=== PATIENT | female | born 1955 | race Caucasian/White ===

== ENCOUNTER 2021-03-14 15:10 | Inpatient (IN) | payer OTHER ==
[~2021-03-14] VITALS: Ht 152.4 cm; Wt 117.4 kg
[~2021-03-14 15:10] MED LIST: ASCO500 PO; ATEN50 PO; ATOR40TA PO; BENZ100A PO; DIPH50; GABA300 PO; GUAI600T33 PO; GUAIFEN-CODEINE10 ML PO; HYDCHL25 PO; LAMOTRIGINE PO; LEVSOD100 PO; LISI10 PO; LISI5 PO; LORA1 PO; METO50 PO; MULVITMIND PO; Mysoline250 MG PO; PARO20 PO; PARO30 PO; PRAV40 PO; Prednisone20 MG PO; Vibramycin100 MG PO; [UNRECOGNIZED DRUG - REMARK]
[2021-03-14 16:40] LABS: BASOPHILS ABSOLUTE AUTO 0.05 K/mm3 (0.00-0.23); BASOPHILS PERCENT AUTO 0 % (0-2); EOSINOPHILS ABSOLUTE AUTO 0.08 K/mm3 (0.00-0.68); EOSINOPHILS PERCENT AUTO 1 % (0-6); Hemoglobin 12.7 g/dL (11.5-16.0); IMMATURE GRAN ABSOLUTE AUTO 0.08 K/mm3 (0.00-0.10); IMMATURE GRAN PERCENT AUTO 1 % (0-1); LYMPHOCYTES ABSOLUTE AUTO 1.41 K/mm3 (0.84-5.20); LYMPHOCYTES PERCENT AUTO 11 % (21-46); MONOCYTES ABSOLUTE AUTO 0.89 K/mm3 (0.16-1.47); MONOCYTES PERCENT AUTO 7 % (4-13); Mean Corpuscular HGB 30.3 pg (26.0-34.0); Mean Corpuscular HGB Conc 34.3 g/dL (31.5-36.5); Mean Corpuscular Volume 88 fL (80-100); Mean Platelet Volume 11.9 fL (9.1-12.4); NEUTROPHILS PERCENT AUTO 80 % (41-73); Platelet Count 323 K/mm3 (150-400); RDW Coefficient Variation 14.1 % (11.7-14.2); RDW Standard Deviation 45.7 fL (35.1-46.3); Red Blood Cell Count 4.19 M/mm3 (3.80-5.20); White Blood Cell Count 12.71 K/mm3 (4.00-11.30)
[2021-03-14 17:13] LABS: Albumin, Blood 2.8 g/dL (3.4-5.0); Albumin/Globulin Ratio 0.5 (0.8-1.8); Bilirubin, Total 0.4 mg/dL (0.1-1.0); Calcium, Blood 8.5 mg/dL (8.5-10.1); Creatinine, Blood 6.3 mg/dL (0.40-1.00); Free Thyroxine 1.05 ng/dL (0.70-1.60); Globulin, Blood 5.8 g/dL (2.2-4.0); Magnesium, Blood 2.1 mg/dL (1.6-2.4); Potassium, Blood 2.8 mmol/L (3.5-5.5); Thyroid Stimulating Hormone 3.58 uIU/mL (0.360-4.800); Total Protein, Blood 8.6 g/dL (6.4-8.2)
[2021-03-14 17:36] LABS: Source, Urine Catheter
[2021-03-14 17:38] LABS: Appearance, Urine Hazy (Clear); Blood, Urine 4+ (Neg); Color, Urine Yellow (P-Yellow); Glucose Qualitative, Urine Neg (Neg); Ketones, Urine 1+ (Neg); Leukocyte Esterase, Urine 1+ (Neg); Nitrite, Urine Neg (Neg); Protein, Urine 3+ (Neg); Specific Gravity, Urine 1.025 (1.003-1.022); Urobilinogen, Urine NORM (Normal)
[2021-03-14 17:44] LABS: Bilirubin, Urine 1+ (Neg)
[2021-03-14 17:45] LABS: Amorphous Mod (0-Heavy); Bacteria Many /hpf
[2021-03-14 17:46] LABS: Squamous Epithelial Cells Mod /hpf (Few)
[2021-03-14 17:49] LABS: Granular Casts 0-2 /lpf (0); Hyaline Casts 0-2 /lpf (0-2); White Blood Cells, Urine 0-2 /hpf (0-5)
[2021-03-14] MEDS ORDERED: GABAPENTIN600 MG PO (18:15)
[2021-03-14] MEDS ORDERED: SYNTHROID150 MC1 PO (18:16)
[2021-03-14] MEDS ORDERED: METO100ER PO (18:16)
[2021-03-14] MEDS ORDERED: IRBESARTAN300 M3 PO (18:16)
[2021-03-14] MEDS ORDERED: LIOT5 PO (18:16)
[2021-03-14] MEDS ORDERED: PARO30 PO (18:16)
[2021-03-14] MEDS ORDERED: HYDROXYZINE PAM25 MG PO (18:17)
[2021-03-14] MEDS ORDERED: PRIMIDONE PO (18:17)
[2021-03-14] MEDS ORDERED: Ativan1 MG PO (18:18)
[2021-03-14] MEDS ORDERED: ATOR40TA PO (18:18)
[2021-03-14] MEDS ORDERED: HYDCHL25 PO (18:18)
[2021-03-14] MEDS ORDERED: ADALAT CC PO (18:18)
[2021-03-14 19:01] LABS: Creatine Kinase MB 5.6 ng/mL (0.0-3.6); Creatine Kinase MB Index 0.9 (0.0-4.0)
[2021-03-14 21:38] LABS: Thyroid Stimulating Hormone 2.85 uIU/mL (0.360-4.800)
[2021-03-14 21:55] LABS: Albumin, Blood 2.6 g/dL (3.4-5.0); Anion Gap 16 mmol/L (6-16); Blood Urea Nitrogen 60 mg/dL (8-24); Bun/Creatinine Ratio 10.1 (12.0-20.0); CO2, Blood 19 mmol/L (21-32); Calcium, Blood 8.2 mg/dL (8.5-10.1); Chloride, Blood 84 mmol/L (98-108); Creatinine, Blood 5.97 mg/dL (0.40-1.00); Glomerular Filtration Rate 7 (60-); Glucose, Blood 122 mg/dL (70-99); Phosphorus, Blood 5.9 mg/dL (2.5-4.9); Potassium, Blood 3.6 mmol/L (3.5-5.5); Sodium, Blood 119 mmol/L (136-145)
[2021-03-15 05:12] LABS: BASOPHILS ABSOLUTE AUTO 0.04 K/mm3 (0.00-0.23); BASOPHILS PERCENT AUTO 0 % (0-2); EOSINOPHILS ABSOLUTE AUTO 0.07 K/mm3 (0.00-0.68); EOSINOPHILS PERCENT AUTO 1 % (0-6); Hematocrit 35.4 % (33.0-51.0); Hemoglobin 11.9 g/dL (11.5-16.0); IMMATURE GRAN ABSOLUTE AUTO 0.11 K/mm3 (0.00-0.10); IMMATURE GRAN PERCENT AUTO 1 % (0-1); LYMPHOCYTES ABSOLUTE AUTO 1.59 K/mm3 (0.84-5.20); LYMPHOCYTES PERCENT AUTO 13 % (21-46); MONOCYTES PERCENT AUTO 7 % (4-13); Mean Corpuscular HGB 30.1 pg (26.0-34.0); Mean Corpuscular HGB Conc 33.6 g/dL (31.5-36.5); Mean Corpuscular Volume 89 fL (80-100); Mean Platelet Volume 11.6 fL (9.1-12.4); NEUTROPHILS ABSOLUTE AUTO 9.75 K/mm3 (1.96-9.15); NEUTROPHILS PERCENT AUTO 78 % (41-73); Platelet Count 291 K/mm3 (150-400); RDW Coefficient Variation 14.1 % (11.7-14.2); RDW Standard Deviation 45.9 fL (35.1-46.3); Red Blood Cell Count 3.96 M/mm3 (3.80-5.20); White Blood Cell Count 12.46 K/mm3 (4.00-11.30)
[2021-03-15 05:36] LABS: Alanine Aminotransfer (ALT/SGP 149 U/L (12-78); Albumin, Blood 2.4 g/dL (3.4-5.0); Albumin/Globulin Ratio 0.5 (0.8-1.8); Alk Phos 136 U/L (50-136); Anion Gap 14 mmol/L (6-16); Aspartate Aminotrans (AST/SGOT 134 U/L (12-37); Bilirubin, Total 0.3 mg/dL (0.1-1.0); Blood Urea Nitrogen 63 mg/dL (8-24); Bun/Creatinine Ratio 10.9 (12.0-20.0); CO2, Blood 21 mmol/L (21-32); Calcium, Blood 8.1 mg/dL (8.5-10.1); Chloride, Blood 88 mmol/L (98-108); Creatinine, Blood 5.77 mg/dL (0.40-1.00); Globulin, Blood 5.1 g/dL (2.2-4.0); Glomerular Filtration Rate 7 (60-); Glucose, Blood 128 mg/dL (70-99); Magnesium, Blood 2.3 mg/dL (1.6-2.4); Phosphorus, Blood 6.3 mg/dL (2.5-4.9); Potassium, Blood 3.2 mmol/L (3.5-5.5); Sodium, Blood 123 mmol/L (136-145); Total Protein, Blood 7.5 g/dL (6.4-8.2)
[2021-03-15 12:39] LABS: SARS-Cov-2 (COVID-19) PCR, MMC NEGATIVE (NEGATIVE)
--- NOTE | 2021-03-15 17:39 | NUR ---
PT ARRIVED IN THE UNIT VIA STRETCHER TRANSFERRED VIA SLIDE SHEET, REPORT RECEIVED FROM CLAU DUARTE AND IS HERE FOR KATHIA. PT IS ALERT AND ORIENTED X3, ABLE TO STATE NAME, , KNOWS WHERE SHE'S AT SOMEWHAT CONFUSED AND FORGETFUL. 1PA FOR TRANSFERS PER REPORT, NS RUNNING AT 50MLS/HR, DR ARIAS IS CONSULTED, PT ALSO HAS UTI. VITALS HRR SINUS 80'S, BP SYSTOLIC 130'S, SATS ABOVE 95% ONRA, AFEBRILE. PT HAS REDNESS ON GROIN, BUTTOCKS AND PANUS, PT DENIES ANY PAIN. PT WAS ALSO BLADDER SCAN 147MLS URINE RETAINED PT NOT FEELING THE URGE TO VOID YET, URINE SAMPLE NEEDED FOR MORE TESTING PER ORDER. NO OTHER ISSUES REPORTED PT HAS BEEN RESTING IN BED ABLE TO MAKE NEEDS KNOWN. WILL REPORT TO ONCOMING SHIFT
[2021-03-16 03:51] LABS: BASOPHILS ABSOLUTE AUTO 0.04 K/mm3 (0.00-0.23); BASOPHILS PERCENT AUTO 0 % (0-2); EOSINOPHILS ABSOLUTE AUTO 0.12 K/mm3 (0.00-0.68); EOSINOPHILS PERCENT AUTO 1 % (0-6); Hematocrit 36.5 % (33.0-51.0); Hemoglobin 12.2 g/dL (11.5-16.0); IMMATURE GRAN PERCENT AUTO 1 % (0-1); LYMPHOCYTES ABSOLUTE AUTO 1.34 K/mm3 (0.84-5.20); LYMPHOCYTES PERCENT AUTO 12 % (21-46); MONOCYTES ABSOLUTE AUTO 0.65 K/mm3 (0.16-1.47); MONOCYTES PERCENT AUTO 6 % (4-13); Mean Corpuscular HGB 30.1 pg (26.0-34.0); Mean Corpuscular HGB Conc 33.4 g/dL (31.5-36.5); Mean Corpuscular Volume 90 fL (80-100); Mean Platelet Volume 11.5 fL (9.1-12.4); NEUTROPHILS ABSOLUTE AUTO 8.57 K/mm3 (1.96-9.15); NEUTROPHILS PERCENT AUTO 79 % (41-73); Platelet Count 272 K/mm3 (150-400); RDW Coefficient Variation 14.6 % (11.7-14.2); RDW Standard Deviation 48.6 fL (35.1-46.3); Red Blood Cell Count 4.05 M/mm3 (3.80-5.20); White Blood Cell Count 10.82 K/mm3 (4.00-11.30)
[2021-03-16 04:10] LABS: Albumin, Blood 2.1 g/dL (3.4-5.0); Anion Gap 14 mmol/L (6-16); Blood Urea Nitrogen 67 mg/dL (8-24); Bun/Creatinine Ratio 14.8 (12.0-20.0); CO2, Blood 20 mmol/L (21-32); Calcium, Blood 7.8 mg/dL (8.5-10.1); Chloride, Blood 93 mmol/L (98-108); Creatinine, Blood 4.54 mg/dL (0.40-1.00); Glomerular Filtration Rate 10 (60-); Glucose, Blood 123 mg/dL (70-99); Phosphorus, Blood 5.3 mg/dL (2.5-4.9); Potassium, Blood 3.5 mmol/L (3.5-5.5); Sodium, Blood 127 mmol/L (136-145)
--- NOTE | 2021-03-16 06:10 | NUR ---
SHIFT SUMMARY ASSUMED CARE OF PT AT 1900. PT IS A/OX4, BUT SLOW TO RESPOND. HEART SOUNDS REGULAR, LUNG SOUNDS ARM DIMINISHED. PT POTASIUM WAS AT 3.2, HOSPITALIST NOTIFIED AND REPLENISHED WITH 40MEQ PO, AM LABS SHOWED POTASSIUM @ 3.5 THIS AM. PT WAS A 1P SBA WITH WALKER TO BATHROOM. PT HAD LOOSE STOOL. PT TRMORS MADE HER GAIT UNSTEADY. PT DID NOT TOLERATE CPAP THIS EVENING, SHE WORE 32L NC DURING THE NIGHT. PT PERIAREA AND PANNUS ARE DISCOLORED, SHE WAS CLEANED AND POWDER APPLIED. CALL LIGHT IN REACH, BED IN LOWEST POSITON.
--- NOTE | 2021-03-16 18:25 | NUR ---
PT SUMMARY PT STATUS CHANGED TO MEDICAL STATUS WITH TELE. NO ISSUES ENCOUNTERED FOR THE SHIFT, PT HAS BEEN AMBULATORY VIA WALKER FOR TRANSFERS SBA, USES BEDSIDE COMMODE AND BATHROOM FOR TOILETING, PT VOIDED MORE THAN 1L FOR THE SHIFT. ADEQUATE FOOD INTAKE. VITALS HAS BEEN STABLE. PRESENT CHRONIC TREMORS. PT ABLE TO MAKE NEEDS KNOWN, WILL MONITOR
[2021-03-17 04:04] LABS: Hematocrit 33.3 % (33.0-51.0); Hemoglobin 11.1 g/dL (11.5-16.0)
[2021-03-17 04:22] LABS: Albumin, Blood 2.1 g/dL (3.4-5.0); Anion Gap 11 mmol/L (6-16); Blood Urea Nitrogen 71 mg/dL (8-24); Bun/Creatinine Ratio 21.7 (12.0-20.0); CO2, Blood 19 mmol/L (21-32); Calcium, Blood 8.6 mg/dL (8.5-10.1); Chloride, Blood 102 mmol/L (98-108); Creatinine, Blood 3.27 mg/dL (0.40-1.00); Glomerular Filtration Rate 14 (60-); Glucose, Blood 108 mg/dL (70-99); Magnesium, Blood 1.9 mg/dL (1.6-2.4); Phosphorus, Blood 4.5 mg/dL (2.5-4.9); Potassium, Blood 3.5 mmol/L (3.5-5.5); Sodium, Blood 132 mmol/L (136-145)
--- NOTE | 2021-03-17 06:19 | NUR ---
SHIFT SUMMARY ASSUMED CARE OF PT AT 1900. PT IS A/OX4. HEART SOUNDS REGULAR, LUNG SOUNDS ARE DIMINISHED, PT WAS NONCOMPLIANT WITH CPAP AND WORE 2L NC INSTEAD. PT WAS A 1P ASIT TO BATHROOM WITH WALKER. PT HAS A RASH ON HER BACK, PT REPORTS FEELING ITCHY, LOTION APPLIED AND PICTURES IN THE CHART. NO ACUTE EVENTS DURING THE NIGHT. CALL LIGHT IN REACH, BED IN LOWEST POSITON.
--- NOTE | 2021-03-17 15:00 | NUR ---
PT TRANSFERRED TO 228 REPORT GIVEN TO JERRI DUARTE. PT VITALS HAS BEEN STALE, WAS ABLE TO WORK WITH PT/OT TODAY WITH NO ISSUES, PT HAS BEEN AMBULATING TO [facility] VIA WALKER. PT TRANSPORTED VIA WHEELCHAIR ACCOMPANIED BY THIS RN, ALL BELONGINGS SENT WITH THE PT.
--- NOTE | 2021-03-17 15:54 | NUR ---
PT TRANSFERRED TO ROOM FROM PCU TRANSFERRED FROM WC TO BED W/FWW AND 1 SBA. TELE NSR @ 75. ORIENTED TO ROOM/CALL LIGHT. ICE WATER AT BEDSIDE. PT DENIES ANY NEEDS AT THIS TIME. CALL LIGHT IN REACH.
--- NOTE | 2021-03-17 17:15 | NUR ---
SUMMARY NO ACUTE CHANGES SINCE ARRIVING TO UNIT FROM PCU. PT AMBULATED TO RESTROOM W/FWW AND VOIDED 700 ML LIGHT YELLOW URINE. PT HAS TREMORS AND IS WEAK BUT AMBULATED W/1 SBA TO RESTROOM W/O DIFFICULTY. DINNERTIME [facility] DID NOT REQUIRE COVERAGE. PT NOW RESTING IN BED. CALL LIGHT IN REACH.
[2021-03-18 07:36] LABS: Hemoglobin 11.3 g/dL (11.5-16.0)
[2021-03-18 07:49] LABS: Albumin, Blood 2.4 g/dL (3.4-5.0); Anion Gap 13 mmol/L (6-16); Blood Urea Nitrogen 62 mg/dL (8-24); Bun/Creatinine Ratio 26.5 (12.0-20.0); CO2, Blood 17 mmol/L (21-32); Calcium, Blood 8.8 mg/dL (8.5-10.1); Chloride, Blood 105 mmol/L (98-108); Creatinine, Blood 2.34 mg/dL (0.40-1.00); Glomerular Filtration Rate 21 (60-); Glucose, Blood 133 mg/dL (70-99); Magnesium, Blood 1.3 mg/dL (1.6-2.4); Phosphorus, Blood 3.3 mg/dL (2.5-4.9); Potassium, Blood 3.3 mmol/L (3.5-5.5); Sodium, Blood 135 mmol/L (136-145)
--- NOTE | 2021-03-18 08:11 | NUR ---
SUMMARY PT WITH SOME CONFUSION TO SITUATION LAST NIGHT.NEEDS REMINDING TO USE CALL LIGHT FOR ASSIST OOB AND APPEARED TO BE HALLUCINATING VERB SHE BELIEVED THER WERE A MALE AND FEMALE IN HER ROOM ARGUING LAST NIGHT.ALSO STATING HER WATERE CUP HAD A HOLE IN THE BOTTOM AND STATED IT HAD WATER SHOOTING OUT THE BOTTOM WHICH WAS NOT THE CASE.THIS AM, PT IS APPROPRIATE TO SITUATION AND LOCATION.
--- NOTE | 2021-03-18 09:34 | NUR ---
THERAPY WORKING W/PT.
[2021-03-18] MEDS ORDERED: GABA300 PO (11:29)
[2021-03-18] MEDS ORDERED: SODCHL1 PO (11:46)
--- NOTE | 2021-03-18 12:36 | NUR ---
PT RESTING IN BED. POTASSIUM INFUSING.
--- NOTE | 2021-03-18 12:45 | NUR ---
PT APPEARS CONFUSED. ATTEMPTED TO GET UP W/O ASSISTANCE, STATING NEEDED TO GO TO THIRD FLOOR. THOUGHT RN WOULD RESIDENCE HALL DIRECTOR HOUSE KEYS FOR HER. ATTEMPTED TO REORIENT. NOTIFIED DR GRACE Solares. NO NEW ORDERS AT THIS TIME. BED ALARM ON. CALL LIGHT IN REACH. K INFUSING PER ORDERS.
--- NOTE | 2021-03-18 15:02 | NUR ---
DISCHARGE CANCELLED PT CONFUSED. AT TIMES, STATES SHE'S IN HER APARTMENT, THAT SHE'S WORRIED ABOUT THE CHAIR COMING THROUGH CEILING. OTHER TIMES SHE IS ABLE TO STATED THE DATE/YEAR. AND ORIENTED TO SELF. DR EDWARDS S IN TO SEE PT AND CANCELLED DC FOR TODAY.
[2021-03-19 04:18] LABS: Hematocrit 33.8 % (33.0-51.0); Hemoglobin 11.1 g/dL (11.5-16.0)
[2021-03-19 05:02] LABS: Albumin, Blood 2.4 g/dL (3.4-5.0); Anion Gap 10 mmol/L (6-16); Blood Urea Nitrogen 46 mg/dL (8-24); Bun/Creatinine Ratio 30.3 (12.0-20.0); CO2, Blood 21 mmol/L (21-32); Calcium, Blood 8.4 mg/dL (8.5-10.1); Chloride, Blood 105 mmol/L (98-108); Creatinine, Blood 1.52 mg/dL (0.40-1.00); Glomerular Filtration Rate 34 (60-); Glucose, Blood 128 mg/dL (70-99); Magnesium, Blood 1.9 mg/dL (1.6-2.4); Phosphorus, Blood 3.1 mg/dL (2.5-4.9); Potassium, Blood 3.3 mmol/L (3.5-5.5); Sodium, Blood 136 mmol/L (136-145)
--- NOTE | 2021-03-19 06:09 | NUR ---
SHIFT SUMMARY PT AOX3. FORGETFUL AT TIMES BUT EASILY REORIENTED. PT CAN VERIFY NAME AND . KNOWS WHERE SHE'S AT. THE CITY AND THE DATE. VSS. GFR THIS MORNING IS 34 - IMPROVED. GLUCOSE IS CONTROLLED IT WAS 128 THIS AM. PT WOULD STILL TALK THINGS OUT OF CONTEXT BUT INTERMITTENTLY. TREMORS NOTED, PT STATES THIS IS CHRONIC. CALLED HOSPITALIST TO RESUME PRIMIDONE. PRIMIDONE DOSE ADJUSTED TO 250MG DUE TO KIDNEY FUNCTION. MED GIVEN BEFORE BED. PT SLEPT GOOD AFTER MIDNIGHT. VOIDING ADEQUATELY, USE BATHROOM WITH 1 MIN ASSIST AND FWW. PT HAD A MED BOWEL MOVEMENT. CALL LIGHT WITHIN REACH. WILL PROVIDE REPORT TO ONCOMING NURSE.
--- NOTE | 2021-03-19 08:15 | NUR ---
pt eating breakfast aox4 stated she feels better
--- NOTE | 2021-03-19 09:00 | NUR ---
dr lozoya by to see pt
--- NOTE | 2021-03-19 11:36 | NUR ---
oint applied to pt's back per req pt just worked with ot
--- NOTE | 2021-03-19 12:08 | NUR ---
PHYSICAL THERAPY WORKING WITH PT
[2021-03-20 04:26] LABS: Hematocrit 33.8 % (33.0-51.0); Hemoglobin 11.1 g/dL (11.5-16.0); Mean Corpuscular HGB 30.2 pg (26.0-34.0); Mean Corpuscular HGB Conc 32.8 g/dL (31.5-36.5); Mean Corpuscular Volume 92 fL (80-100); Mean Platelet Volume 10.8 fL (9.1-12.4); Platelet Count 364 K/mm3 (150-400); RDW Coefficient Variation 15.1 % (11.7-14.2); Red Blood Cell Count 3.68 M/mm3 (3.80-5.20); White Blood Cell Count 13.85 K/mm3 (4.00-11.30)
[2021-03-20 04:44] LABS: Albumin, Blood 2.2 g/dL (3.4-5.0); Albumin/Globulin Ratio 0.5 (0.8-1.8); Bilirubin, Total 0.2 mg/dL (0.1-1.0); Bun/Creatinine Ratio 29.2 (12.0-20.0); Calcium, Blood 8.6 mg/dL (8.5-10.1); Creatinine, Blood 1.2 mg/dL (0.40-1.00); Globulin, Blood 4.5 g/dL (2.2-4.0); Magnesium, Blood 1.3 mg/dL (1.6-2.4); Total Protein, Blood 6.7 g/dL (6.4-8.2)
--- NOTE | 2021-03-20 05:21 | NUR ---
SHIFT SUMMARY AOX4. FORGETFUL AT TIMES. STILL EXPERIENCING TREMORS, PRIMIDONE GIVEN PO BEFORE BED. RENAL FUNCTION HAS IMPROVED WITH GFR OF 45. MAGNESIUM AT 1.3 THIS MORNING BUT NA, K AND CL ARE WNL. PT AMBULATES IN THE BATHROOM WITH 1 ASSIST WITH FWW. PT USES HER CALL LIGHT MORE APPROPRIATELY T/O SHIFT. VOIDING WELL WITHOUT ANY ISSUES. PT DENIES CHEST PAIN AND SOB. WEARS 2L OF 02 VIA N/C IN REPLACE TO CPAP. VSS. AFEBRILE. CALL LIGHT WITHIN REACH. WILL PROVIDE REPORT TO ONCOMING NURSE.
--- NOTE | 2021-03-20 06:42 | NUR ---
DR. ARIAS TO SEE PT IN ROOM. NEW ORDER FOR MAG SULFATE. MED GIVEN VIA IV. PT UP TO CHAIR WATCHING TV.
--- NOTE | 2021-03-20 11:22 | NUR ---
DISCHARGE. PT LEFT VIA WHEELCHAIR TO TRANSPORT. IV REMOVED PRIOR TO DISCHARGE, INSTRUCTIONS GONE OVER WITH PATIENT, DENIED FURTHER INSTRUCTIONS. PT [id number], TOLERATING PO WELL. PLANS TO FOLLOW UP WITH CARE PROVIDERS WITHIN 3 DAYS.
== END 2021-03-20 11:07 | disposition home health service (06) | DRG 871 ==
LOC: ER 15:10 → ERHOLD 18:13 → ER 18:13 → ERHOLD 23:24 → PCU 23:24 → SURS 03-17 15:38
PROVIDERS: Emergency Medicine; Internal Medicine Nephrology; ADMIT Family Medicine
DX: A41.9 Sepsis, unspecified organism (principal); G92 Toxic encephalopathy; E22.2 Syndrome of inappropriate secretion of antidiuretic hormone; N17.9 Acute kidney failure, unspecified; Z68.43 Body mass index [BMI] 50.0-59.9, adult; M62.82 Rhabdomyolysis; F05 Delirium due to known physiological condition; E87.2 Acidosis; E86.0 Dehydration; E87.6 Hypokalemia; Z20.822 Contact with and (suspected) exposure to COVID-19; E03.9 Hypothyroidism, unspecified; E66.01 Morbid (severe) obesity due to excess calories; I12.9 Hypertensive chronic kidney disease with stage 1 through stage 4 chronic kidney disease, or unspecified chronic kidney disease; E78.2 Mixed hyperlipidemia; N18.9 Chronic kidney disease, unspecified; E78.5 Hyperlipidemia, unspecified; E86.9 Volume depletion, unspecified; E11.22 Type 2 diabetes mellitus with diabetic chronic kidney disease; T50.2X5A Adverse effect of carbonic-anhydrase inhibitors, benzothiadiazides and other diuretics, initial encounter; E83.39 Other disorders of phosphorus metabolism; E83.42 Hypomagnesemia; T46.5X5A Adverse effect of other antihypertensive drugs, initial encounter; D63.1 Anemia in chronic kidney disease; R31.9 Hematuria, unspecified; R74.01 Elevation of levels of liver transaminase levels; E87.70 Fluid overload, unspecified; F32.9 Major depressive disorder, single episode, unspecified; J44.9 Chronic obstructive pulmonary disease, unspecified; E11.42 Type 2 diabetes mellitus with diabetic polyneuropathy; E88.09 Other disorders of plasma-protein metabolism, not elsewhere classified; E78.00 Pure hypercholesterolemia, unspecified; G47.33 Obstructive sleep apnea (adult) (pediatric); Z98.890 Other specified postprocedural states; Z79.899 Other long term (current) drug therapy; Z87.891 Personal history of nicotine dependence
CPT/HCPCS: 36415; 71046; 76770; 80053; 80069; 81001; 82533; 82550; 82553; 82947; 83605; 83735; 83930; 83935; 84100; 84295; 84300; 84439; 84443; 84550; 85014; 85018; 85025; 85027; 87040; 87086; 93005; 93010; 94660; 94762; 96361; 96365; 96375; 97110; 97116; 97162; 97166; 97530; 97535; 99285-25; A9270; J0696; J1644; J3475; J3480; J7030; J7040; U0004

== ENCOUNTER 2021-08-26 15:54 | Inpatient (IN) | payer OTHER ==
[~2021-08-26] VITALS: Ht 152.4 cm; Wt 63.0 kg
[~2021-08-26 15:54] MED LIST changes: +ADALAT CC PO; +Ativan1 MG PO; +CEPH500 PO; +GABAPENTIN600 MG PO; +HYDROXYZINE PAM25 MG PO; +IRBESARTAN300 M3 PO; +LIOT5 PO; +PRIMIDONE PO; +SODCHL1 PO
[2021-08-26 16:55] LABS: BASOPHILS ABSOLUTE AUTO 0.06 K/mm3 (0.00-0.23); BASOPHILS PERCENT AUTO 0 % (0-2); EOSINOPHILS ABSOLUTE AUTO 0.07 K/mm3 (0.00-0.68); EOSINOPHILS PERCENT AUTO 1 % (0-6); Hematocrit 39.4 % (33.0-51.0); Hemoglobin 12.8 g/dL (11.5-16.0); IMMATURE GRAN ABSOLUTE AUTO 0.05 K/mm3 (0.00-0.10); IMMATURE GRAN PERCENT AUTO 0 % (0-1); LYMPHOCYTES ABSOLUTE AUTO 1.86 K/mm3 (0.84-5.20); LYMPHOCYTES PERCENT AUTO 14 % (21-46); MONOCYTES ABSOLUTE AUTO 1.01 K/mm3 (0.16-1.47); MONOCYTES PERCENT AUTO 7 % (4-13); Mean Corpuscular HGB 28.8 pg (26.0-34.0); Mean Corpuscular HGB Conc 32.5 g/dL (31.5-36.5); Mean Corpuscular Volume 89 fL (80-100); Mean Platelet Volume 10.9 fL (9.1-12.4); NEUTROPHILS ABSOLUTE AUTO 10.58 K/mm3 (1.96-9.15); NEUTROPHILS PERCENT AUTO 78 % (41-73); Platelet Count 313 K/mm3 (150-400); RDW Coefficient Variation 13.2 % (11.7-14.2); RDW Standard Deviation 43.1 fL (35.1-46.3); Red Blood Cell Count 4.44 M/mm3 (3.80-5.20); White Blood Cell Count 13.63 K/mm3 (4.00-11.30)
[2021-08-26 17:06] LABS: Anion Gap 9 mmol/L (6-16); Blood Urea Nitrogen 8 mg/dL (8-24); CO2, Blood 26 mmol/L (21-32); Calcium, Blood 8.9 mg/dL (8.5-10.1); Chloride, Blood 96 mmol/L (98-108); Creatinine, Blood 0.54 mg/dL (0.40-1.00); Glomerular Filtration Rate >60 (60-); Glucose, Blood 123 mg/dL (70-99); Sodium, Blood 131 mmol/L (136-145)
[2021-08-26] MEDS ORDERED: AMOX-CLAV 875-1 EAC5 PO (20:59)
[2021-08-26] MEDS ORDERED: FUROSEMIDE40 MG PO (21:03)
[2021-08-26] MEDS ORDERED: NEURONTIN600 MG PO (21:04)
[2021-08-26] MEDS ORDERED: KLOR-CON 1010 ME1 PO (21:05)
[2021-08-26] MEDS ORDERED: Ativan1 MG PO (21:05)
[2021-08-26] MEDS ORDERED: PAXIL40 M1 PO (21:06)
[2021-08-26] MEDS ORDERED: SYNTHROID150 MC1 PO (21:06)
[2021-08-26] MEDS ORDERED: METO100ER PO (21:07)
[2021-08-26] MEDS ORDERED: PRIM250 PO (21:08)
--- NOTE | 2021-08-27 04:17 | NUR ---
ADMISSION NOTE/SHIFT SUMMARY PATIENT ARRIVED ON MEDICAL UNIT FROM ED AOX4 SKIN ASSESSMENT DONE BRUISES TO HER RASTA F/ARMS.LEFT JAW SWOLLEN PAINFULL TO TOUCH PT HAD ABSCESS REMOVED. MOUTH ASSESSMENT DONE NO BLEEDING NOTED NO PAIN SWALLOWING ABLE TO DRINK SIP OF ROOM TEMP WATER.INITIAL DOSE OF CLINDAMYCIN ADM APON ARRIVAL IN THE UNIT.STANDBY ASSIST WITH WALKER DUE TO TREMORS TO UPPER EXTRIMITIES.FLUE VACCINE ADM PER PT REQUEST TO HER LEFT HAND TOLARATED WELL NO REACTION NOTED STAFF WILL CONT TO MONITOR TEMP
[2021-08-27 04:48] LABS: BASOPHILS ABSOLUTE AUTO 0.06 K/mm3 (0.00-0.23); BASOPHILS PERCENT AUTO 0 % (0-2); EOSINOPHILS PERCENT AUTO 0 % (0-6); Hematocrit 38.4 % (33.0-51.0); Hemoglobin 12.3 g/dL (11.5-16.0); IMMATURE GRAN ABSOLUTE AUTO 0.09 K/mm3 (0.00-0.10); IMMATURE GRAN PERCENT AUTO 1 % (0-1); LYMPHOCYTES ABSOLUTE AUTO 0.73 K/mm3 (0.84-5.20); LYMPHOCYTES PERCENT AUTO 4 % (21-46); MONOCYTES ABSOLUTE AUTO 0.77 K/mm3 (0.16-1.47); MONOCYTES PERCENT AUTO 4 % (4-13); Mean Corpuscular Volume 91 fL (80-100); NEUTROPHILS ABSOLUTE AUTO 16.19 K/mm3 (1.96-9.15); NEUTROPHILS PERCENT AUTO 91 % (41-73); Platelet Count 310 K/mm3 (150-400); RDW Coefficient Variation 13.7 % (11.7-14.2); RDW Standard Deviation 45.3 fL (35.1-46.3); Red Blood Cell Count 4.24 M/mm3 (3.80-5.20); White Blood Cell Count 17.84 K/mm3 (4.00-11.30)
[2021-08-27 06:19] LABS: Bun/Creatinine Ratio 9.5 (12.0-20.0); Creatinine, Blood 0.95 mg/dL (0.40-1.00); Potassium, Blood 3.7 mmol/L (3.5-5.5)
--- NOTE | 2021-08-27 17:50 | NUR ---
SHIFT SUMMARY PT USING HER WARM COMPRESS WELL. GOAL OF 20 MINUTES EVERY HOUR. SWELLING TO L JAW APPEARS TO BE SLIGHTLY LESS THAN EARLIER THIS SHIFT. PT STATES SHE ALSO FEELS THAT IT FEELS SMALLER. PT HAS DENIED NEED FOR PAIN MEDS T/O DAY. TOLERATING FULL LIQUID DIET WELL. DECADRON CHANGED TO BID PER DR FLOR TODAY.NO OTHER ACUTE CHANGES IN ASSESSMENT AT THIS TIME. VS REVIEWED. PT UP IN BED, EATING DINNER.
[2021-08-28 05:05] LABS: BASOPHILS ABSOLUTE AUTO 0.03 K/mm3 (0.00-0.23); BASOPHILS PERCENT AUTO 0 % (0-2); EOSINOPHILS ABSOLUTE AUTO 0.01 K/mm3 (0.00-0.68); EOSINOPHILS PERCENT AUTO 0 % (0-6); Hematocrit 39.2 % (33.0-51.0); Hemoglobin 12.6 g/dL (11.5-16.0); IMMATURE GRAN ABSOLUTE AUTO 0.02 K/mm3 (0.00-0.10); IMMATURE GRAN PERCENT AUTO 0 % (0-1); LYMPHOCYTES ABSOLUTE AUTO 0.85 K/mm3 (0.84-5.20); LYMPHOCYTES PERCENT AUTO 12 % (21-46); MONOCYTES ABSOLUTE AUTO 0.46 K/mm3 (0.16-1.47); MONOCYTES PERCENT AUTO 6 % (4-13); Mean Corpuscular HGB 29.4 pg (26.0-34.0); Mean Corpuscular HGB Conc 32.1 g/dL (31.5-36.5); Mean Corpuscular Volume 91 fL (80-100); Mean Platelet Volume 11.3 fL (9.1-12.4); NEUTROPHILS ABSOLUTE AUTO 5.85 K/mm3 (1.96-9.15); NEUTROPHILS PERCENT AUTO 81 % (41-73); Platelet Count 278 K/mm3 (150-400); RDW Coefficient Variation 13.7 % (11.7-14.2); RDW Standard Deviation 46.5 fL (35.1-46.3); Red Blood Cell Count 4.29 M/mm3 (3.80-5.20); White Blood Cell Count 7.22 K/mm3 (4.00-11.30)
--- NOTE | 2021-08-28 05:20 | NUR ---
SHIFT SUMMARY PATIENT CONT ABT/TOOTH ABCESS NO PAIN IN THIS SHIFT SWELLING HAS DECREASED NO BLEEDING NOTED TO THE LEFT JAW.
[2021-08-28 05:46] LABS: Alanine Aminotransfer (ALT/SGP 23 U/L (12-78); Albumin, Blood 2.9 g/dL (3.4-5.0); Albumin/Globulin Ratio 0.6 (0.8-1.8); Alk Phos 103 U/L (50-136); Anion Gap 8 mmol/L (6-16); Aspartate Aminotrans (AST/SGOT 20 U/L (12-37); Bilirubin, Total 0.2 mg/dL (0.1-1.0); Blood Urea Nitrogen 12 mg/dL (8-24); Bun/Creatinine Ratio 19.6 (12.0-20.0); CO2, Blood 24 mmol/L (21-32); Chloride, Blood 99 mmol/L (98-108); Creatinine, Blood 0.61 mg/dL (0.40-1.00); Glomerular Filtration Rate >60 (60-); Glucose, Blood 140 mg/dL (70-99); Potassium, Blood 3.9 mmol/L (3.5-5.5); Sodium, Blood 131 mmol/L (136-145); Total Protein, Blood 7.9 g/dL (6.4-8.2)
--- NOTE | 2021-08-28 16:21 | NUR ---
SHIFT SUMMARY PATIENT IS ALERT AND ORIENTED X3-4. PATIENT HAS BEEN RESTING MOST OF THE DAY. RECEIVED HER ANTIBOTICS FOR HER ABCESS. PATIENT DENIES PAIN, NAUSEA, VOMITTING AND SOB THIS SHIFT. NO ACUTE EVENTS THIS SHIFT. VITAL SIGNS REVIEWED. CALL LIGHT IN PLACE. BED IN LOCKED AND LOWEST POSITION. WILL MONITOR UNTIL SHIFT CHANGE.
--- NOTE | 2021-08-29 04:53 | NUR ---
SHIFT SUMMARY NO ACUTE EVENTS IN THI SSHIFT PATIENT CONT ABT/ABCESS LEFT JAW SWELLING HAS GONE DOWN NO PAIN DURING MOUTH ASSESSMENT NO BLEEDING NOTED PATIENT STATED THAT THE MOUTH STILL FILLS SORE WITH NO ACUTE PAIN.CALM MOOD RESTING WITH EYES CLOSED MOST OF TIME
[2021-08-29 04:57] LABS: Hematocrit 36.8 % (33.0-51.0); Mean Corpuscular HGB 29.3 pg (26.0-34.0); Mean Corpuscular HGB Conc 32.6 g/dL (31.5-36.5); Mean Corpuscular Volume 90 fL (80-100); Mean Platelet Volume 11.3 fL (9.1-12.4); Platelet Count 307 K/mm3 (150-400); RDW Coefficient Variation 13.6 % (11.7-14.2); RDW Standard Deviation 44.7 fL (35.1-46.3); White Blood Cell Count 6.42 K/mm3 (4.00-11.30)
[2021-08-29 05:44] LABS: Anion Gap 8 mmol/L (6-16); Blood Urea Nitrogen 13 mg/dL (8-24); Bun/Creatinine Ratio 22.6 (12.0-20.0); CO2, Blood 26 mmol/L (21-32); Calcium, Blood 8.9 mg/dL (8.5-10.1); Chloride, Blood 99 mmol/L (98-108); Creatinine, Blood 0.57 mg/dL (0.40-1.00); Glomerular Filtration Rate >60 (60-); Glucose, Blood 142 mg/dL (70-99); Potassium, Blood 4.1 mmol/L (3.5-5.5); Sodium, Blood 133 mmol/L (136-145)
--- NOTE | 2021-08-29 15:49 | NUR ---
SHIFT SUMMARY PATIENT IS ALERT AND ORIENTED X4. PATIENT IS PLEASENT AND COOPERATIVE WITH CARE. PATIENT HAS BEEN RESTING MOST OF SHIFT. PATIENTS ABCESS HAS DECREASED SINCE PRIOR SHIFT. DR FLOR WAS CONSULTED BY DR HUFFMAN ABOUT DISCHARGE. DISCHARGE IS BEING PLANNED FOR WEDNESDAY AFTER A COUPLE MORE DAYS ANTIBIOTICS. PATIENT HAS HAD NO ACUTE EVENTS THIS SHIFT. VITAL SIGNS REVIEWED. CALL LIGHT IN PLACE. WILL MONITOR UNTIL SHIFT CHANGE.
--- NOTE | 2021-08-30 04:53 | NUR ---
SHIFT SUMMARY A/O, ABLE TO MAKE NEEDS KNOWN. COOPERATIVE [facility] CARE. ANSWERS QUESTIONS APPROPRIATELY. NO C/O PAIN/DISCOMFORT. UP SBA /c FWW. NO ACUTE CHANGES NOTED OVERNIGHT. BED IN LOWEST. CALL LIGHT AND BELONGINGS WITHIN REACH. REPORT TO ONCOMING RN.
[2021-08-30 05:10] LABS: BASOPHILS ABSOLUTE AUTO 0.06 K/mm3 (0.00-0.23); BASOPHILS PERCENT AUTO 1 % (0-2); EOSINOPHILS ABSOLUTE AUTO 0.09 K/mm3 (0.00-0.68); EOSINOPHILS PERCENT AUTO 1 % (0-6); Hematocrit 38.8 % (33.0-51.0); Hemoglobin 12.5 g/dL (11.5-16.0); IMMATURE GRAN ABSOLUTE AUTO 0.01 K/mm3 (0.00-0.10); IMMATURE GRAN PERCENT AUTO 0 % (0-1); LYMPHOCYTES ABSOLUTE AUTO 2.71 K/mm3 (0.84-5.20); LYMPHOCYTES PERCENT AUTO 41 % (21-46); MONOCYTES ABSOLUTE AUTO 0.68 K/mm3 (0.16-1.47); MONOCYTES PERCENT AUTO 10 % (4-13); Mean Corpuscular HGB 29.1 pg (26.0-34.0); Mean Corpuscular HGB Conc 32.2 g/dL (31.5-36.5); Mean Corpuscular Volume 90 fL (80-100); Mean Platelet Volume 11.5 fL (9.1-12.4); NEUTROPHILS ABSOLUTE AUTO 3.12 K/mm3 (1.96-9.15); NEUTROPHILS PERCENT AUTO 47 % (41-73); Platelet Count 304 K/mm3 (150-400); RDW Standard Deviation 46.5 fL (35.1-46.3); White Blood Cell Count 6.67 K/mm3 (4.00-11.30)
[2021-08-30 05:31] LABS: Anion Gap 8 mmol/L (6-16); Blood Urea Nitrogen 14 mg/dL (8-24); CO2, Blood 27 mmol/L (21-32); Calcium, Blood 8.9 mg/dL (8.5-10.1); Chloride, Blood 101 mmol/L (98-108); Creatinine, Blood 0.61 mg/dL (0.40-1.00); Glomerular Filtration Rate >60 (60-); Glucose, Blood 110 mg/dL (70-99); Potassium, Blood 3.8 mmol/L (3.5-5.5); Sodium, Blood 136 mmol/L (136-145)
--- NOTE | 2021-08-30 17:16 | NUR ---
SHIFT SUMMARY; PATIENT HAS NO ACUTE CHANGES IN CONDITION TODAY. SHE REMAINS IN BED FOR ENTIRE DAY ONLY GETTING UP TO USE BATHROOM. SHE IS A SBA WITH A FRONT WHEEL WALKER TO THE BATHROOM. COMPLAINS OF ACHING IN HER MOUTH FROM DENTAL PAIN. IS SLEEPING WHEN THIS RN CHECKS. SHE IS COOPERATIVE WITH CARE AND IS ABLE TO MAKE HER NEEDS KNOWN. PLAN IS FOR PATIENT TO STAY UNTIL WEDNESDAY AND FINISH COURSE OF ANTIBIOTICS IN HOSPITAL. RIZWAN PRIETO RN
--- NOTE | 2021-08-31 04:13 | NUR ---
SHIFT SUMMARY A/O, ABLE TO MAKE NEEDS KNOWN. COOPERATIVE WITH CARE. CALLS AND ANSWERS QUESTIONS APPROPRIATELY. NO C/O PAIN/DISCOMFORT. APPEARED TO REST MUCH OF THE NIGHT. NO ACUTE CHANGES NOTED. VSS/AFEBRILE. BED REMAINS IN LOWEST POSITION. CALL LIGHT AND BELONGINGS WITHIN REACH. REPORT TO ONCOMING RN.
[2021-08-31 05:07] LABS: BASOPHILS ABSOLUTE AUTO 0.08 K/mm3 (0.00-0.23); BASOPHILS PERCENT AUTO 1 % (0-2); EOSINOPHILS ABSOLUTE AUTO 0.16 K/mm3 (0.00-0.68); EOSINOPHILS PERCENT AUTO 2 % (0-6); Hematocrit 39.9 % (33.0-51.0); Hemoglobin 12.8 g/dL (11.5-16.0); IMMATURE GRAN ABSOLUTE AUTO 0.03 K/mm3 (0.00-0.10); IMMATURE GRAN PERCENT AUTO 0 % (0-1); LYMPHOCYTES ABSOLUTE AUTO 2.87 K/mm3 (0.84-5.20); LYMPHOCYTES PERCENT AUTO 35 % (21-46); MONOCYTES ABSOLUTE AUTO 0.71 K/mm3 (0.16-1.47); MONOCYTES PERCENT AUTO 9 % (4-13); Mean Corpuscular HGB 29.1 pg (26.0-34.0); Mean Corpuscular HGB Conc 32.1 g/dL (31.5-36.5); Mean Corpuscular Volume 91 fL (80-100); Mean Platelet Volume 11.4 fL (9.1-12.4); NEUTROPHILS PERCENT AUTO 53 % (41-73); Platelet Count 323 K/mm3 (150-400); RDW Coefficient Variation 14.2 % (11.7-14.2); RDW Standard Deviation 47.5 fL (35.1-46.3); White Blood Cell Count 8.25 K/mm3 (4.00-11.30)
--- NOTE | 2021-08-31 17:21 | NUR ---
SHIFT SUMMARY; PATIENT WORKS WITH PT TODAY AND IS ABLE TO AMBULATE IN HALLWAY. SHE IS CONCERNED THAT HER TREMORS WILL MAKE HER FALL. PT CATHY IS ABLE TO REASSURE PATIENT AND SHE IS VERY EXCITED TO BE ABLE TO MOVE ABOUT ROOM. PATIENT COMPLAINS OF MOUTH PAIN LATE THIS AFTERNOON AND IS SUCCESSFULLY MEDICATED WITH TYLENOL FOR PAIN. PATIENT IS AO X 4. NON FEBRILE AND VITAL SIGNS ARE WNL. SHE IS ABLE TO MAKE HER NEEDS KNOWN. LUNGS ARE DIMINISHED BUT CLEAR. WILL REMAIN AVAILABLE FOR THIS PAITENT FOR ANY WANTS OR NEEDS UNTIL HAND OFF AT SHIFT CHANGE. RIZWAN PRIETO RN
--- NOTE | 2021-09-01 04:43 | NUR ---
SHIFT SUMMARY PT HAD AN UNEVENTFUL NIGHT. SLEPT MOST OF THE NIGHT. CONTINUES TO HAVE SOME MOUTH PAIN. MEDICATED W/ TYLENOL. IV ANTIBIOTICS INFUSED PER ORDERS. VITAL SIGNS STABLE. PT ANTICIPATES D/C HOME TODAY. WILL CONTINUE TO MONITOR.
[2021-09-01 05:05] LABS: BASOPHILS ABSOLUTE AUTO 0.08 K/mm3 (0.00-0.23); BASOPHILS PERCENT AUTO 1 % (0-2); EOSINOPHILS ABSOLUTE AUTO 0.21 K/mm3 (0.00-0.68); EOSINOPHILS PERCENT AUTO 2 % (0-6); Hematocrit 38.8 % (33.0-51.0); Hemoglobin 12.4 g/dL (11.5-16.0); IMMATURE GRAN ABSOLUTE AUTO 0.03 K/mm3 (0.00-0.10); IMMATURE GRAN PERCENT AUTO 0 % (0-1); LYMPHOCYTES ABSOLUTE AUTO 3.47 K/mm3 (0.84-5.20); LYMPHOCYTES PERCENT AUTO 38 % (21-46); MONOCYTES ABSOLUTE AUTO 0.68 K/mm3 (0.16-1.47); MONOCYTES PERCENT AUTO 7 % (4-13); Mean Corpuscular Volume 91 fL (80-100); Mean Platelet Volume 11.3 fL (9.1-12.4); NEUTROPHILS ABSOLUTE AUTO 4.69 K/mm3 (1.96-9.15); NEUTROPHILS PERCENT AUTO 51 % (41-73); Platelet Count 316 K/mm3 (150-400); RDW Coefficient Variation 14.1 % (11.7-14.2); RDW Standard Deviation 47.1 fL (35.1-46.3); Red Blood Cell Count 4.27 M/mm3 (3.80-5.20); White Blood Cell Count 9.16 K/mm3 (4.00-11.30)
[2021-09-01 05:33] LABS: Anion Gap 8 mmol/L (6-16); Blood Urea Nitrogen 15 mg/dL (8-24); Bun/Creatinine Ratio 21.6 (12.0-20.0); CO2, Blood 26 mmol/L (21-32); Calcium, Blood 8.8 mg/dL (8.5-10.1); Chloride, Blood 102 mmol/L (98-108); Creatinine, Blood 0.69 mg/dL (0.40-1.00); Glomerular Filtration Rate >60 (60-); Glucose, Blood 112 mg/dL (70-99); Sodium, Blood 136 mmol/L (136-145)
[2021-09-01] MEDS ORDERED: Acetaminophen650 M1 PO (09:56)
[2021-09-01] MEDS ORDERED: ATOR20 PO (09:57)
[2021-09-01] MEDS ORDERED: CLIN150 PO (09:57)
[2021-09-01] MEDS ORDERED: MELA3 PO (09:58)
[2021-09-01] MEDS ORDERED: HYDR1TAB94 PO (09:58)
[2021-09-01] MEDS ORDERED: LACT PO (09:59)
--- NOTE | 2021-09-01 11:46 | NUR ---
DISCHARGE PT DISCHARGED AT 1125. PT EDUCATED ON NEW MEDS AND FOLLOW UP INSTRUCTIONS PRIOR TO DC. PT DENIED FURTHER QUESTIONS AT THIS TIME. IV REMOVED & INTACT. PT FOLLOW UP APPOINTMENTS MADE AND HARD SCRIPT GIVEN TO PT. PT WHEELED OUT BY THIS RN AND PICKED UP BY [facility].
== END 2021-09-01 11:25 | disposition home or self-care (01) | DRG 137 ==
LOC: ER 15:54 → MEDS 21:15
PROVIDERS: Family Medicine; Physician Assistant; ADMIT Internal Medicine
PROC: 0W930ZZ Drainage of Oral Cavity and Throat, Open Approach (ICD-10-PCS; principal; 2021-08-26)
PROC: 3E02340 Introduction of Influenza Vaccine into Muscle, Percutaneous Approach (ICD-10-PCS; 2021-08-26)
DX: K04.7 Periapical abscess without sinus (principal); K12.2 Cellulitis and abscess of mouth; G25.0 Essential tremor; E78.5 Hyperlipidemia, unspecified; E66.9 Obesity, unspecified; Z23 Encounter for immunization; E03.9 Hypothyroidism, unspecified; Z60.2 Problems related to living alone; I10 Essential (primary) hypertension; Z68.27 Body mass index [BMI] 27.0-27.9, adult; G47.33 Obstructive sleep apnea (adult) (pediatric); Z79.899 Other long term (current) drug therapy; Z87.891 Personal history of nicotine dependence
CPT/HCPCS: 10061; 36415; 70491; 80048; 80053; 85025; 85027; 86140; 86308; 90686; 97116; 97161; 99285-25; A9270; J1100; J1650; J3010; J7030; J7050; Q9967